=== PATIENT | male | born 1995 | race Caucasian/White ===

== ENCOUNTER 2024-06-22 14:15 | Emergency (ER) | payer OTHER, SELFPAY ==
--- OUTSIDE RECORDS SUMMARY | 2024-06-22 14:17 | XMS_ITS | CONTINUITY OF CARE DOCUMENT ---
Author Name lisa lisematias Address Unknown Organization [facility] Address [address] [place] [address] Phone [phone] Care Team Providers Care Scoop Machine Operator Name Role Phone Cam ANG, Stephen Unavailable ANGÉLICA ANG, GANESH Unavailable MAYNOR ANG, CARLOS Unavailable [phone] INSURANCE PROVIDERS Payer name Policy type / Coverage type [place] [employer] ID HEALTHCARE AND FAMILY SERVICES Medicaid 1 [id number]
--- OUTSIDE RECORDS SUMMARY | 2024-06-22 14:17 | XMS_ITS | Referral Summary ---
Author Organization [facility] Address [address] [place] [address] Care Team Providers Care Tool Coordinator Name Role Phone Kavitha Lee MD Primary Care Provider + Allergies No known active allergies Medications HYDROcodone-acet aminophen (NORCO) 5-325 mg per tabletIndication s:Pain Take 1 tablet by mouth every 4 (four) hours as needed for pain. 20 tablet 02/04/2018 Active famotidine (PEPCID) 40 mg tablet Take 1 tablet (40 mg total) by mouth 2 (two) times a day 20 tablet 01/25/2019 Active lisinopril (PRINIVIL,ZESTRI L) 40 mg tablet Take 1 tablet (40 mg total) by mouth daily 20 tablet 01/25/2019 Active Active Problems No known active problems Social History Tobacco Use Types Packs/Day Years Used Date Smoking Tobacco: Every Day Cigarettes Smokeless Tobacco: Never Alcohol Use Standard Drinks/Week Comments Yes 0 (1 standard drink = 0.6 oz pur e alcohol) Personal Safety Answer Date Recorded Getting School Help Needed Not on file 05/12 Sex and Gender Information Value Date Recorded Sex Assigned at Not on file 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 Care Teams Tool Coordinator Relationship Specialty Start Date End Date Kavitha Lee MD PCP - General 10/27/16
--- OUTSIDE RECORDS SUMMARY | 2024-06-22 14:17 | XMS_ITS | Clinical Summary ---
Author Organization [facility] Address [address] [place] [address] Phone Care Team Providers Care Design Chief Name Role Phone Kavitha Lee MD Primary Care Provider + Allergies No known active allergies Medications lisinopril (PRINIVIL, ZESTRIL) 20 MG Tablet Take 1 Tab by mouth daily. 30 Tab 9 Active HYDROcodone-acet aminophen (NORCO) 5-325 MG Tablet Take 1-2 Tabs by mouth every 6 hours as needed for Moderate or more severe pain. 20 Tab 9 Active ondansetron (ZOFRAN-ODT) 4 MG TABLET DISPERSIBLE Take 1 Tab by mouth every 8 hours as needed for Nausea - 1st line. 10 Tab 9 Active Social History Tobacco Use Types Packs/Day Years Used Date Smoking Tobacco: Every Day Cigarettes Smokeless Tobacco: Never Alcohol Use Standard Drinks/Week Comments Yes 14 (1 standard drink = 0.6 oz pu re alcohol) Sex and Gender Information Value Date Recorded Sex Assigned at Not on file Legal Sex Male 10:50 AM CDT Gender Identity Not on file Sexual Orientation Not on file Last Filed Vital Signs Vital Sign Reading Time Taken Comments Blood Pressure 171/99 02/13/2019 8:25 PM CDT Pulse 63 02/13/2019 6:57 PM CDT Temperature 36.3 ??C (97.4 ??F) 02/13/2019 6:57 PM CD T Respiratory Rate 18 02/13/2019 6:57 PM CDT Oxygen Saturation 100% 02/13/2019 6:57 PM CDT Inhaled Oxygen Concentration - - Weight 68 kg (150 lb) 02/13/2019 6:57 PM CDT Height 167.6 cm (5' 6 ) 02/13/2019 6:57 PM CDT Body Mass Index 24.21 02/13/2019 6:57 PM CDT Plan of Treatment Health Maintenance Due Date Last Done Comments Hepatitis C Virus (HCV) Screening 1996 Influenza Immunization (#1) 2024 12/0 08/2014, 03/20/2014, 03/20/2013, Additional history exists SARS-COV-2 Immunization () 01/29/2024 Respiratory Syncytial Virus (RSV) Immunization (Adult) (1 - 1-dose 75+ series) 2071 Hepatitis B Immunization Completed 997, 1996, 1996 DTaP/Tdap/Td Immunization Discontinued 2006, 01/07/2001, 04/26/1998, Additional history exists TdaP Immunization Completed 11/04/2006 Meningococcal Immunization (ACWY) Aged Out 12/23/2008 No longer eligible based on patient's age to complete this topic Human Papillomavirus (HPV) Immunization Discontinued 09/07/2012, 05/25/2012, 02/15/2012 Pneumococcal Immunization Combined Aged Out No longer eligible based on patient's age to complete this topic Rotavirus Immunization Aged Out No lo nger eligible based on patient's age to complete this topic Insurance MEDICAID [employer] Care Teams Design Chief Relationship Specialty Start Date End Date Kavitha Lee MD [address] [place] [address] PCP - General Family Medicine 02/19/17
--- OUTSIDE RECORDS SUMMARY | 2024-06-22 14:17 | XMS_ITS | Clinical Summary ---
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 Gender Identity Not on file Sexual Orientation Not on file Obstetrics History Last Filed Vital Signs Vital Sign Reading [...] 02/15/2023 6:09 AM CDT Plan of Treatment Health Maintenance Due Date Last Done Comments Depression Screening 1996 Hepatitis C Screening 1996 Pneumococcal vaccine <65 (1 of 2 - PCV) 2002 Regular Well Visit/Exam 18-64 2014 DTaP/Tdap/Td Vaccine (7 - Td or Tdap) 11/04/2016 11/04/2006, 01/07/2001, 04/26/1998, Additional history exists Influenza Vaccine (#1) 2024 5, 03/20/2014, 03/20/2013, Additional history exists Varicella Vaccines Completed 11/04/2006, 0 09/26/1997, 06/26/1997 HPV Vaccines Completed 09/07/2012, 04/30, 02/15/2012 Insurance [facility] Member Subscriber Plan / Payer (Ef fective 2018-Present) Name:Jose Luis Huston Relation to Subscriber:Self Name:Jose Luis Huston Payer ID:[id number] (NAIC) Group ID:Not on file Type:MEDICAID RISK OTHER Address: [address] [place] [address] [facility] Care Teams Fryline Attendant Relationship Specialty Start Date End Date Kavitha Lee MD PCP - General 10/27/16
--- OUTSIDE RECORDS SUMMARY | 2024-06-22 14:24 | XMS_ITS | CONTINUITY OF CARE DOCUMENT ---
Author Name lisa lisematias Address Unknown Organization [facility] Address [address] [place] [address] Phone [phone] Care Team Providers Care Trolley Operator Name Role Phone Cam ANG, Stephen Unavailable ANGÉLICA ANG, GANESH Unavailable MAYNOR ANG, CARLOS Unavailable INSURANCE PROVIDERS Payer name Policy type / Coverage type [place] [employer] HEALTHCARE AND FAMILY SERVICES Medicaid 1 [id number]
--- NOTE | 2024-06-22 14:32 | ED_ITS ---
HPI - Ear Problem General Chief complaint: Ear Stated complaint: Left Ear Pain Time Seen by Provider: 06/22/24 14:40 Source: patient, RN notes reviewed and old records reviewed Mode of arrival: ambulatory Limitations: no limitations History of Present Illness HPI Narrative: 29 year old male who presents to [facility] care with complaints of left ear pain for the past week. Patient reports that he had been using warmth to his left ear and was using ear wax drops and it did seem a little better till today when he was out in the cold. and he has had bleeding from his left ear. Patient has extremely high blood pressure states that he use to be on Lisinopril 40 mg daily in the past but has not taken any blood pressure medications for some time. Patient voices past history of robotic surgery for obstruction of left ureteropelvic junction repair in 2013. MD Complaint: ear pain, ear discharge and other (uncontrolled hypertension) Location: left ear Duration: constant (intermittent till today when it has been constant.) Severity: severe Discharge from ear: Reports yes - bloody Associated symptoms ear: decreased hearing and other (pain left ear,blood from left ear) Treatment prior to arrival: other (warm compresses to left ear and ear wax drops) Related Data Allergies Allergy/AdvReac Type Severity Reaction Status Date / Time No Known Allergies Allergy Verified 06/22/24 14:33 Review of Systems Review of Systems: CONSTITUTIONAL: Reports malaise, no chills, sweats, or fever. EYES: Denies visual changes, redness, or discharge. ENT: Reports no rhinorrhea, congestion, sinus pain,positive for left otalgia with blood from left ear and no sore throat. CARDIOVASCULAR: Denies chest pain, palpitations, or edema. RESPIRATORY: Reports no cough.? Denies dyspnea. GASTROINTESTINAL: Denies abdominal pain, nausea, vomiting, diarrhea SKIN: Denies rash or itching. MUSCULOSKELETAL: Denies myalgia. NEUROLOGIC: Denies headache. All systems reviewed & are unremarkable except as noted in HPI and below PMFSH Past Medical History Medical History (Updated 06/23/24 @ 11:19 by Paty Avelar NP) Ureteropelvic junction (UPJ) obstruction, left Robotic surgery to repair 2013 Hypertension Surgical History Surgical History (Updated 06/23/24 @ 11:01 by Paty Avelar NP) History of placement of ear tubes as child Family History Family History (Updated 06/23/24 @ 11:15 by Paty Avelar NP) Father Hypertension [place] kidney Acute myocardial infarction Mother Hypertension Grandparent [place] kidney Acute myocardial infarction Social History Social History (Updated 06/23/24 @ 11:03 by Paty Avelar NP) Smoking packs per day: 0.5 Smoking cigarettes per day: 10.0 Smoking status: Current every day smoker Tobacco type: cigarettes Alcohol intake: current Alcohol use details: social Substance use type: does not use Gender identity (if verbalized by the patient): Male Comments At time of signature, agree with nursing past medical, surgical, social and family history. There is no relevant family history pertinent to the presenting complaint Exam Narrative: GENERAL: ill-appearing, well-nourished, and in some acute distress. HEAD: Normocephalic EYES: PERRLA, conjunctivae clear ENT: Nares clear, turbinates edematous and erythematous, clear discharge. Mucous membranes moist.Left TM red with purulent and bloody drainage possible perforation decreased hearing, redness and swelling of ear canal also Right TM pearly lin with dull light reflex; Left tragal tenderness. Oropharynx erythematous without lesions. Tonsils not enlarged and without exudate, no drooling, no hoarseness, no trismus, uvula midline. NECK: Supple. No lymphadenopathy CHEST: Clear to auscultation, breath sounds equal. No wheezing, rhonchi, rales, or stridor. No respiratory distress, speaks in full sentences.SAO2 100% on room air HEART: Regular rate and rhythm. No murmur heard. SKIN: Warm, dry, no rash. NEURO: Alert and oriented x3. denies ny headache,dizziness or blurring of vision PSYCH: Normal mood and affect Course Course Emergency Course: Patient is aware of diagnosis, understands and agrees to treatment plan.? Anticipatory guidance given.? Patient agrees to follow-up as directed and is aware of reasons to seek care at the emergency department. Portions of this record may have been created with voice recognition software Level of Care: Express Care Visit Vital Signs Vital signs: Vital Signs Temperature 36.9 C 06/22/24 14:33 Pulse Rate 91 06/22/24 14:33 Respiratory Rate 16 06/22/24 14:33 Blood Pressure 229/141 H 01/24/25 14:33 Pulse Oximetry 100 06/22/24 14:33 Oxygen Delivery Room Air 06/22/24 14:33 Temperature 36.9 C 06/22/24 14:33 Pulse Rate 91 06/22/24 14:33 Respiratory Rate 16 06/22/24 14:33 Blood Pressure 200/122 H 06/22/24 15:21 Pulse Oximetry 100 06/22/24 14:33 Oxygen Delivery Room Air 06/22/24 14:33 Reviewed Medical Decision Making MDM Narrative Medical decision making narrative: Patient medicated with Ibuprofen 600mg for left ear pain and Clonidine 0.1mg po given in clinic with blood pressure decreased to 180/100 on discharge.Lisinopril reordered at 20 mg twice daily with patient to monitor blood pressure at home, patient reports that he has blood pressure monitor at home and to record with instructions on medication administration reviewed with understanding voiced. Call placed to supervisor mirror fabrication MD Dr Thakur's office and spoke with [facility] office staff and appointment made for patient for Tuesday in his office with patient agreeable for appointment. Differential Diagnosis Differential Diagnosis: left otitis media with possible perforation of TM, otitis externa,acute left ear pain, uncontrolled hypertension, prescription for previous medication taken for hypertension given at 20mg BID dosing, Medical Records Medical records reviewed: Yes I reviewed the external patient's medical records. Vital Signs Vital Signs: Vital Signs Temperature 36.9 C 06/22/24 14:33 Pulse Rate 91 06/22/24 14:33 Respiratory Rate 16 06/22/24 14:33 Blood Pressure 229/141 H 06/22/24 14:33 Pulse Oximetry 100 06/22/24 14:33 Oxygen Delivery Room Air 06/22/24 14:33 Temperature 36.9 C 06/22/24 14:33 Pulse Rate 91 06/22/24 14:33 Respiratory Rate 16 06/22/24 14:33 Blood Pressure 200/122 H 06/22/24 15:21 Pulse Oximetry 100 06/22/24 14:33 Oxygen Delivery Room Air 06/22/24 14:33 Critical Care Time Critical Care Time Critical Care Time: No Discharge Plan Discharge Clinical Impression: Acute left otitis media, Uncontrolled hypertension Acute otitis externa Qualifiers: Otitis externa type: diffuse Laterality: left Qualified Code(s): H60.312 - Diffuse otitis externa, left ear Patient Disposition: Home, Self-Care Condition: Stable Instructions: Antibiotic Form, Ear Infection (GEN) Additional Instructions: Increase fluids especially juices and water [id number] cough and cold medicine of your choice for your symptoms Tylenol or ibuprofen for for any fever or pain Steroids as directed--take with food heat to the face 20-30 minutes 4-6 times a day for pain Salt water gargles, throat lozenges or throat sprays as desired Antibiotic as directed--finished the medication Ear drops as prescribed Patient to monitor blood pressure closely at least twice daily. To resume blood pressure medication of lisinopril 20 mg twice daily take blood pressure before taking medication. if evening blood pressure is below 120/80 hold evening dose keep record of your recordings Call Dr.JIM Thakur's office on Tuesday morning he is MD supervisor mirror fabrication to get follow up appointment appointment on Tuesday at 1:[address] Thakur's office obtained,, If your symptoms persist, change or worsen significantly before you can contact your personal physician then please, without delay, go to the emergency department for further evaluation. Follow-up with PCP in 7-10 days or sooner if needed Follow up with PCP soon in regards to your blood pressure which is elevated above threshold for referral. Blood pressure above 120/80 may indicate pre- hypertension. Best blood pressure recording was after Clonidine and Ibuprofen for his ear pain was 180/100 Patient Language: Portuguese Prescriptions: New lisinopril 20 mg tablet 20 mg PO BID Qty: 60 0RF amoxicillin-pot clavulanate 875-125 mg tablet 1 tablet PO Q12H Qty: 20 0RF ofloxacin 0.3 % drops 5 drp LEFT EAR BID 10 Days Qty: 5 0RF prednisone 20 mg tablet 20 mg PO BID Qty: 10 0RF Follow-up/Referrals: UNKNOWN,DOCTOR [Primary Care Provider] - Time of Disposition: 15:52 Quality Sharmila Coma Scale Eyes: Open Verbal: Oriented and Alert Motor: Follows Commands Sharmila Coma Total Score: 15
[2024-06-22 14:33] VITALS: BP 229/141; PULSE 91; RESP 16; TEMP 36.9; O2SAT 100
[2024-06-22] MEDS: cloNIDine HCL 0.1 MG TABLET PO (14:52)
[2024-06-22 15:21] VITALS: BP 200/122
[2024-06-22] MEDS: IBUPROFEN 600 MG TABLET PO (15:25)
== END 2024-06-22 16:14 | disposition home or self-care (01) ==
PROVIDERS: Emergency Provider Registered Nurse
DX: H66.92 Otitis media, unspecified, left ear (principal); H60.312 Diffuse otitis externa, left ear; I10 Essential (primary) hypertension; F17.210 Nicotine dependence, cigarettes, uncomplicated
CPT/HCPCS: 99203; A9270; G0463